=== PATIENT | male | born 1970 | race Caucasian/White ===

== ENCOUNTER 2017-08-20 08:32 | Day surgery (SDC) | payer BC ==
[2017-08-18 13:57] VITALS: BMI 32.3
[2017-08-20] MEDS ORDERED: MIDAZOLAM HCL 2 MG/2 ML SINGLE DOSE VIAL ONE ×3 (09:29→10:29)
[2017-08-20] MEDS ORDERED: BUPIVACAINE HCL/PF 0.5% (5MG/ML) 10 ML VIAL ONE (09:47)
[2017-08-20] MEDS ORDERED: PROMETHAZINE HCL 25 MG/1 ML VIAL IVPUSH PRN (12:18)
[2017-08-20] MEDS ORDERED: ONDANSETRON 4 MG/2 ML VIAL IVPUSH PRN (12:18)
[2017-08-20] MEDS ORDERED: oxyCODONE HCL 5 MG TABLET PO PRN ×2 (12:18)
[2017-08-20] MEDS ORDERED: LACTATED RINGERS SOLUTION 1,000 ML IV SCH (12:30)
[2017-08-20 14:23] VITALS: TEMP 97.8
[2017-08-20 16:12] VITALS: BP 155/90; PULSE 96
== END 2017-08-20 16:00 | disposition home or self-care (01) ==
LOC: FASU 08:32
PROVIDERS: ATTEND Orthopaedic Surgery Sports Medicine
PROC: 0LQM0ZZ Repair Left Upper Leg Tendon, Open Approach (ICD-10-PCS; principal; 2017-08-20 10:43)
DX: S76.112A Strain of left quadriceps muscle, fascia and tendon, initial encounter (principal); W10.9XXA Fall (on) (from) unspecified stairs and steps, initial encounter; Y93.89 Activity, other specified; Y92.89 Other specified places as the place of occurrence of the external cause
CPT/HCPCS: 94760; 97116-GP